=== PATIENT | female | born 1955 | race Caucasian/White ===

== ENCOUNTER → 2017-05-03 | Outpatient (CLI) | payer BC ==
[2017-05-03 11:59] LABS: ALT 28 U/L (9-52); AST 29 U/L (14-36); Alkaline Phosphatase 67 U/L (38-126); Anion Gap 8 mmol/L; Blood Urea Nitrogen 20 mg/dL (7-17); Calcium 9.3 mg/dL (8.4-10.2); Carbon Dioxide 26 mmol/L (22-30); Chloride 106 mmol/L (98-107); Cholesterol 196 mg/dL (<200); Glucose 91 mg/dL (74-99); HDL Cholesterol 66 mg/dL (40-60); Non-African American GFR(MDRD) >60 (>60 ml/min/1.73 sqM); Potassium 4.4 mmol/L (3.5-5.1); Sodium 140 mmol/L (137-145); Total Bilirubin 0.6 mg/dL (0.2-1.3); Total Protein 6.7 g/dL (6.3-8.2); Triglycerides 101 mg/dL (<150)
[2017-05-03 12:06] LABS: Basophils % (A) 1 %; CH 29.8; CHCM 32.9; Eosinophils # (A) 0.2 k/uL (0-0.7); Eosinophils % (A) 5 %; HCT 39.3 % (34.0-46.0); HDW 2.22; HGB 13.2 gm/dL (11.4-16.0); Luc # (Auto) 0.19; Luc % (Auto) 4; Lymphocytes # (A) 1.1 k/uL (1.0-4.8); Lymphocytes % (A) 23 %; MCH 30.5 pg (25.0-35.0); MCHC 33.6 g/dL (31.0-37.0); MCV 90.9 fL (80.0-100.0); Mean Platelet Volume 7.9; Monocytes # (A) 0.4 k/uL (0-1.0); Monocytes % (A) 8 %; Neutrophils # (A) 2.9 k/uL (1.3-7.7); Neutrophils % (A) 60 %; RBC 4.32 m/uL (3.80-5.40); RDW 12.5 % (11.5-15.5); WBC 4.8 k/uL (3.8-10.6); WBC (Perox) 5.21
[2017-05-03 12:14] LABS: Appearance,Urine Cloudy (Clear); Bacteria,Urine Rare /hpf; Bilirubin,Urine Negative (Negative); Glucose,Urine (UA) Negative (Negative); Ketones,Urine Negative (Negative); Leukocyte Esterase,Urine Large (Negative); Mucus,Urine Rare /hpf; Nitrite,Urine Negative (Negative); PH, Urine 5.5 (5.0-8.0); Particle Count 6404; Protein,Urine Negative (Negative); RBC,Urine 5 /hpf (0-5); Specific Gravity,Urine 1.018 (1.001-1.035); Squamous Epithelial Cell,Urine 3 /hpf (0-4); UA Billing (MACRO vs. MICRO) MICRO; Urobilinogen,Urine <2.0 mg/dL (<2.0); WBC,Urine 58 /hpf (0-5)
[2017-05-03 12:38] LABS: Hepatitis C Virus IgG Ab Negative (Negative); Hepatitis C Virus IgG Index 0.02
== END | disposition home or self-care (01) ==
LOC: LABWHC1 10:54
PROVIDERS: ATTEND Family Medicine
DX: Z00.00 Encounter for general adult medical examination without abnormal findings (principal); D64.9 Anemia, unspecified; E03.9 Hypothyroidism, unspecified; Z13.9 Encounter for screening, unspecified
CPT/HCPCS: 36415; 80053; 80061; 81001; 84439; 84443; 84481; 85025; 86803

== ENCOUNTER → 2018-06-30 | Outpatient (CLI) | payer BC ==
[2018-06-30 11:29] LABS: HCT 43.2 % (34.0-46.0); HGB 13.9 gm/dL (11.4-16.0); MCH 29.8 pg (25.0-35.0); MCHC 32.3 g/dL (31.0-37.0); MCV 92.4 fL (80.0-100.0); Mean Platelet Volume 7.1; Platelet Count 234 k/uL (150-450); RBC 4.68 m/uL (3.80-5.40); RDW 12.8 % (11.5-15.5); WBC 5.1 k/uL (3.8-10.6)
[2018-06-30 11:55] LABS: ALT 30 U/L (9-52); AST 28 U/L (14-36); Albumin 4.5 g/dL (3.5-5.0); Alkaline Phosphatase 68 U/L (38-126); Anion Gap 7 mmol/L; Blood Urea Nitrogen 35 mg/dL (7-17); Calcium 9.9 mg/dL (8.4-10.2); Carbon Dioxide 26 mmol/L (22-30); Chloride 106 mmol/L (98-107); Cholesterol 206 mg/dL (<200); Glucose 102 mg/dL (74-99); HDL Cholesterol 92 mg/dL (40-60); LDL Cholesterol,Calculated 100 mg/dL (0-99); Potassium 4.7 mmol/L (3.5-5.1); Sodium 139 mmol/L (137-145); Total Bilirubin 0.6 mg/dL (0.2-1.3); Total Protein 7.4 g/dL (6.3-8.2); Triglycerides 70 mg/dL (<150)
[2018-06-30 12:10] LABS: T4, Free (Free Thyroxine) 1.28 ng/dL (0.78-2.19)
[2018-06-30 12:18] LABS: Appearance,Urine Cloudy (Clear); Bacteria,Urine Occasional /hpf; Bilirubin,Urine Negative (Negative); Blood,Urine Negative (Negative); Color,Urine Yellow; Glucose,Urine (UA) Negative (Negative); Hyaline Casts,Urine 1 /lpf (0-2); Ketones,Urine Negative (Negative); Leukocyte Esterase,Urine Large (Negative); Mucus,Urine Rare /hpf; Nitrite,Urine Positive (Negative); PH, Urine 5.5 (5.0-8.0); Protein,Urine Negative (Negative); RBC,Urine 1 /hpf (0-5); Specific Gravity,Urine 1.018 (1.001-1.035); Squamous Epithelial Cell,Urine 2 /hpf (0-4); Urobilinogen,Urine <2.0 mg/dL (<2.0); WBC,Urine 30 /hpf (0-5)
== END | disposition home or self-care (01) ==
LOC: LABWHC1 11:03
PROVIDERS: ATTEND Family Medicine
DX: Z00.01 Encounter for general adult medical examination with abnormal findings (principal); R53.83 Other fatigue; E66.3 Overweight; E55.9 Vitamin D deficiency, unspecified; E03.9 Hypothyroidism, unspecified
CPT/HCPCS: 36415; 80053; 80061; 81001; 82306; 84439; 84443; 84481; 85027

== ENCOUNTER → 2019-07-25 | Outpatient (CLI) | payer BC ==
[2019-07-25 11:52] LABS: Appearance,Urine Cloudy (Clear); Bacteria,Urine Few /hpf; Bilirubin,Urine Negative (Negative); Blood,Urine Negative (Negative); Color,Urine Yellow; Glucose,Urine (UA) Negative (Negative); Ketones,Urine Negative (Negative); Leukocyte Esterase,Urine Large (Negative); Mucus,Urine Occasional /hpf; Nitrite,Urine Positive (Negative); Protein,Urine Negative (Negative); RBC,Urine 2 /hpf (0-5); Squamous Epithelial Cell,Urine 4 /hpf (0-4); Urobilinogen,Urine <2.0 mg/dL (<2.0); WBC,Urine 45 /hpf (0-5)
[2019-07-25 12:01] LABS: HCT 44.6 % (34.0-46.0); HGB 14.9 gm/dL (11.4-16.0); MCH 31.2 pg (25.0-35.0); MCHC 33.3 g/dL (31.0-37.0); MCV 93.6 fL (80.0-100.0); Mean Platelet Volume 6.1; Platelet Count 243 k/uL (150-450); RBC 4.77 m/uL (3.80-5.40); RDW 12.3 % (11.5-15.5); WBC 5.5 k/uL (3.8-10.6)
[2019-07-25 17:52] LABS: T4, Free (Free Thyroxine) 1.3 ng/dL (0.80-1.80)
[2019-07-25 18:02] LABS: African American GFR (CKD) 106.9 (60.0-200.0); Albumin 4.7 g/dL (3.80-4.90); Albumin/Globulin Ratio 2.35 (1.60-3.17); Anion Gap 13.2 mmol/L (4.00-12.00); BUN/Creat Ratio 25.71 Ratio (12.00-20.00); Calcium 9.8 mg/dL (8.7-10.3); Carbon Dioxide 26.8 mmol/L (21.6-31.8); Chol/HDL Ratio 2.09; LDL Cholesterol,Calculated 116.4 mg/dL (0.0-131.0); Potassium 4.6 mmol/L (3.5-5.5); Total Bilirubin 0.3 mg/dL (0.2-1.2); Total Protein 6.7 g/dL (6.2-8.2); VLDL Calculation 12.6 mg/dL (5.00-40.00)
== END | disposition home or self-care (01) ==
LOC: LABWHC1 10:38
PROVIDERS: ATTEND Family Medicine
DX: Z00.01 Encounter for general adult medical examination with abnormal findings (principal); E03.9 Hypothyroidism, unspecified; E55.9 Vitamin D deficiency, unspecified; R53.83 Other fatigue; E66.3 Overweight
CPT/HCPCS: 36415; 80053; 80061; 81001; 82306; 84439; 84443; 84481; 85027

== ENCOUNTER 2019-10-09 10:46 | Emergency (ER) | payer BC, OTHER ==
[2019-10-09 10:50] VITALS: BP 170/94; PULSE 97; RESP 18; TEMP 98.3
[2019-10-09] MEDS ORDERED: LIDOCAINE/EPINEPHR/TETRACAINE 5 ML BOTTLE TOPICAL ONE (10:55)
--- NOTE | 2019-10-09 11:11 | ED ---
Wound/Laceration HPI - General Chief Complaint: Wound/Laceration Stated Complaint: head lac-[facility] Time Seen by Provider: 10/09/19 10:53 Source: patient, RN notes reviewed Mode of arrival: ambulatory Limitations: no limitations - History of Present Illness Initial Comments: 64-year-old female presents emergency Department chief complaint of a head injury. Patient is at work states that she lifted a metal measuring device up but it did not stay states it fell striking him in the right cervical head. She states her tetanus is up-to-date. Patient denies any loss conscious. Patient states she does have mild headache, burning sensation at the site of the laceration. Patient denies any blurred vision, focal weakness denies nausea vomiting. - Related Data Home Medications Medication Instructions Recorded Confirmed Dextroamphetamine/Amphetamine 20 mg PO BID 08/05/16 08/10/16 [Adderall] Ergocalciferol [Vitamin D2 50,000 unit PO Q30D 08/05/16 08/10/16 (DRISDOL)] Levothyroxine Sodium [Synthroid] 88 mcg PO DAILY 08/05/16 08/10/16 Previous Rx's Medication Instructions Recorded Sennosides-Docusate Sodium 1 tab PO BID #60 tablet 08/12/16 [Senokot-S] Warfarin [Coumadin] 2.5 mg PO DAILY #1 tab 08/12/16 traMADol HCl [Ultram] 50 mg PO QID PRN #90 tab 08/12/16 Allergies Allergy/AdvReac Type Severity Reaction Status Date / Time codeine Allergy Vomiting Verified 08/05/16 09:23 Review of Systems ROS Statement: Those systems with pertinent positive or pertinent negative responses have been documented in the HPI. ROS Other: All systems not noted in ROS Statement are negative. Past Medical History Past Medical History: Thyroid Disorder Additional Past Medical History / Comment(s): Recent UTI completed ABX, varicose veins, hx ulcer, History of Any Multi-Drug Resistant Organisms: None Reported Past Surgical History: Cholecystectomy, Joint Replacement, Orthopedic Surgery Additional Past Surgical History / Comment(s): 08/10/16 Total R hip arthroplasty. Other surgical hx: surgery for stomach ulcer with cholecy stectomy, surgery on toes rt foot, Past Anesthesia/Blood Transfusion Reactions: No Reported Reaction Past Psychological History: ADD/ADHD Smoking Status: Former smoker Past Alcohol Use History: Occasional Past Drug Use History: None Reported - Past Family History Mother Family Medical History: No Reported History Additional Family Medical History / Comment(s): Mother was healthy and lived to be 83 yrs old. Father Family Medical History: Cancer Additional Family Medical History / Comment(s): Father at the age of 65 yrs due to lung cancer. General Exam Limitations: no limitations General appearance: alert, in no apparent distress Head exam: Present: atraumatic, normocephalic. Absent: normal inspection (2 cm laceration on right temporal region) Eye exam: Present: normal appearance, PERRL, EOMI. Absent: scleral icterus, conjunctival injection, periorbital swelling ENT exam: Present: normal exam, normal oropharynx, mucous membranes moist, TM's normal bilaterally Neck exam: Present: normal inspection, full ROM. Absent: tenderness, meningismus, lymphadenopathy Respiratory exam: Present: normal lung sounds bilaterally. Absent: respiratory distress, wheezes, rales, rhonchi, stridor Cardiovascular Exam: Present: regular rate, normal rhythm, normal heart sounds. Absent: systolic murmur, diastolic murmur, rubs, gallop, clicks Neurological exam: Present: alert, oriented X3, CN II-XII intact, reflexes normal. Absent: motor sensory deficit Skin exam: Present: warm, dry, intact, normal color. Absent: rash Course Vital Signs 10/09/19 10:48 Temperature 98.3 F Pulse Rate 97 Respiratory 18 Rate Blood Pressure 170/94 O2 Sat by Pulse 96 Oximetry Procedures - Laceration Laceration #1 Consent Obtained: verbal consent Indication: laceration Site: scalp Size (cm): 2 Description: linear Pre-repair: wound explored, irrigated extensively, deep structures intact Type of Sutures: other (dermal glue) Patient Tolerated Procedure: well, no complications Medical Decision Making - Medical Decision Making patient had scalp laceration, this was closed using exofin. CT is unremarkable. Patient's tetanus is up-to-date patient will be discharged in stable condition return parameters discussed. Disposition Clinical Impression: Laceration, Head injury Disposition: HOME SELF-CARE Condition: Stable Instructions (If sedation given, give patient instructions): Skin Adhesive Care (ED), Head Injury (ED) Additional Instructions: Please return to the Emergency Department if symptoms worsen or any other concerns. Is patient prescribed a controlled substance at d/c from ED?: No Referrals: Cornelio Wood MD [Primary Care Provider] - 1-2 days Time of Disposition: 11:51
--- NOTE | 2019-10-09 11:33 | CT ---
EXAMINATION TYPE: CT brain wo con DATE OF EXAM: 10/09/2019 COMPARISON: Head trauma, laceration and pain HISTORY: Head laceration-[facility] CT DLP: 1099.4 mGycm Automated exposure control for dose reduction was used. Head CT performed utilizing departmental prot ocol FINDINGS: Probable bandage is present over the right frontal scalp region. No intracranial hemorrhage or hydroc ephalus is noted. Cortical atrophy is mild. There are cerebral vascular calcifications present. Periv entricular white matter shows patchy low attenuation. Calvarium is intact. Paranasal sinuses are well aerated. Mastoid air cells are symmetric, oropharynx unremarkable as seen. Possible small lacunar in farct present in the basal ganglia on the left. IMPRESSION: NO ACUTE BRAIN ABNORMALITY. AGE-RELATED CHANGES OF ATROPHY AND PROBABLE CHRONIC SMALL VESSEL ISCHEMIA .
[2019-10-09] MEDS ORDERED: TOPICAL SKIN ADHESIVE 1 EACH AMP TOPICAL ONE (11:44)
== END 2019-10-09 12:06 | disposition home or self-care (01) ==
LOC: EC 10:46
DX: S01.01XA Laceration without foreign body of scalp, initial encounter (principal); E07.9 Disorder of thyroid, unspecified; F90.9 Attention-deficit hyperactivity disorder, unspecified type; Z87.891 Personal history of nicotine dependence; Z88.5 Allergy status to narcotic agent; Z79.890 Hormone replacement therapy; Z79.899 Other long term (current) drug therapy; Z87.440 Personal history of urinary (tract) infections; W20.8XXA Other cause of strike by thrown, projected or falling object, initial encounter; Y93.89 Activity, other specified; Y92.69 Other specified industrial and construction area as the place of occurrence of the external cause; Y99.0 Civilian activity done for income or pay
CPT/HCPCS: 12001; 70450; 99283

== ENCOUNTER → 2020-09-25 | Outpatient (CLI) | payer SELFPAY ==
[2020-09-25 09:14] LABS: HCT 43.6 % (34.0-46.0); HGB 14.1 gm/dL (11.4-16.0); MCH 30.9 pg (25.0-35.0); MCHC 32.4 g/dL (31.0-37.0); MCV 95.5 fL (80.0-100.0); Mean Platelet Volume 7.3; Platelet Count 274 k/uL (150-450); RBC 4.57 m/uL (3.80-5.40); RDW 12.4 % (11.5-15.5)
[2020-09-25 15:14] LABS: African American GFR (CKD) 90.3 (60.0-200.0); Albumin 4.6 g/dL (3.80-4.90); Albumin/Globulin Ratio 2.19 (1.60-3.17); Anion Gap 7.5 mmol/L (4.00-12.00); Calcium 9.9 mg/dL (8.7-10.3); Carbon Dioxide 30.5 mmol/L (21.6-31.8); Chol/HDL Ratio 2.81; Globulin 2.1 g/dL (1.6-3.3); LDL Cholesterol,Calculated 104.8 mg/dL (0.0-131.0); Non-African American GFR(CKD) 77.9 (60.0-200.0); Potassium 4.4 mmol/L (3.5-5.5); Total Bilirubin 0.2 mg/dL (0.2-1.2); Total Protein 6.7 g/dL (6.2-8.2); VLDL Calculation 54.2 mg/dL (5.00-40.00)
[2020-09-25 15:22] LABS: T4, Free (Free Thyroxine) 1.3 ng/dL (0.80-1.80)
== END | disposition home or self-care (01) ==
LOC: LABWHC1 08:25
PROVIDERS: ATTEND Family Medicine
DX: Z00.01 Encounter for general adult medical examination with abnormal findings (principal); E03.9 Hypothyroidism, unspecified; R53.83 Other fatigue; E66.3 Overweight
CPT/HCPCS: 36415; 80053; 80061; 84439; 84443; 84481; 85027

== ENCOUNTER → 2020-10-31 | Outpatient (CLI) | payer SELFPAY | END | disposition home or self-care (01) | LOC: LABWHC1 11:43 | PROVIDERS: ATTEND Family Medicine | DX: E03.9 Hypothyroidism, unspecified (principal) | CPT/HCPCS: 36415; 84443 ==

== ENCOUNTER → 2021-08-23 | Outpatient (CLI) | payer MEDICARE ==
[2021-08-23 18:43] LABS: HGB 13.9 g/dL (12.0-15.0); MCH 30.2 pg (27.0-32.0); MCHC 30.9 g/dL (32.0-37.0); MCV 97.8 fL (80.0-97.0); Mean Platelet Volume 11.3 fL (9.5-12.2); Platelet Count 240 X 10*3/uL (140-440); RDW 12.8 % (11.5-14.5)
[2021-08-23 20:11] LABS: African American GFR (CKD) 107.4 (60.0-200.0); Albumin 4.5 g/dL (3.8-4.9); Albumin/Globulin Ratio 1.71 (1.60-3.17); Anion Gap 18.4 mmol/L (4.00-12.00); BUN/Creat Ratio 21.03 Ratio (12.00-20.00); Blood Urea Nitrogen 13.9 mg/dL (9.0-27.0); Calcium 9.4 mg/dL (8.7-10.3); Carbon Dioxide 18.6 mmol/L (21.6-31.8); Chol/HDL Ratio 2.41 Ratio; Globulin 2.6 g/dL (1.6-3.3); HDL Cholesterol 84.7 mg/dL (40.00-60.00); LDL Cholesterol,Calculated 101.1 mg/dL (0.0-131.0); Non-African American GFR(CKD) 92.7 (60.0-200.0); Potassium 4.3 mmol/L (3.5-5.5); T4, Free (Free Thyroxine) 1.58 ng/dL (0.800-1.800); Total Bilirubin 0.3 mg/dL (0.30-1.20); Total Protein 7.1 g/dL (6.2-8.2); VLDL Calculation 18.2 mg/dL (5.00-40.00)
== END | disposition home or self-care (01) ==
LOC: LABWHC1 09:57
PROVIDERS: ATTEND Family Medicine
DX: Z00.01 Encounter for general adult medical examination with abnormal findings (principal); R53.83 Other fatigue; E03.9 Hypothyroidism, unspecified; E66.3 Overweight
CPT/HCPCS: 36415; 80053; 80061; 84439; 84443; 84481; 85027

== ENCOUNTER → 2022-09-03 | Outpatient (CLI) | payer MEDICARE, BC ==
[2022-09-03 18:17] LABS: HGB 14.2 g/dL (12.0-15.0); MCH 30.7 pg (27.0-32.0); MCHC 31.6 g/dL (32.0-37.0); MCV 97.4 fL (80.0-97.0); Mean Platelet Volume 10.7 fL (9.5-12.2); NRBC Per 100 WBC 0 /100 WBCS (0.0-0.0); Platelet Count 273 X 10*3/uL (140-440); RBC 4.62 X 10*6/uL (4.10-5.20); RDW 12.1 % (11.5-14.5); WBC 5.14 X 10*3/uL (4.50-10.00)
[2022-09-03 19:00] LABS: ALT 16 U/L (8-44); AST 22 U/L (13-35); African American GFR (CKD) 105.6 (60.0-200.0); Albumin 4.5 g/dL (3.8-4.9); Albumin/Globulin Ratio 1.83 (1.60-3.17); Alkaline Phosphatase 103 U/L (41-126); BUN/Creat Ratio 20.41 Ratio (12.00-20.00); Blood Urea Nitrogen 13.9 mg/dL (9.0-27.0); Calcium 9.9 mg/dL (8.7-10.3); Carbon Dioxide 26.6 mmol/L (20.0-27.5); Chloride 104 mmol/L (96-109); Chol/HDL Ratio 2.64 Ratio; Globulin 2.5 g/dL (1.6-3.3); Glucose 83 mg/dL (70-110); LDL Cholesterol,Calculated 104.6 mg/dL (0.0-131.0); Non-African American GFR(CKD) 91.1 (60.0-200.0); Potassium 4.6 mmol/L (3.5-5.5); Sodium 143 mmol/L (135-145)
== END | disposition home or self-care (01) ==
LOC: LABWHC1 10:51
PROVIDERS: ATTEND Family Medicine
DX: Z00.01 Encounter for general adult medical examination with abnormal findings (principal); E03.9 Hypothyroidism, unspecified; E55.9 Vitamin D deficiency, unspecified
CPT/HCPCS: 36415; 80053; 80061; 82306; 84439; 84443; 84481; 85027

== ENCOUNTER → 2023-04-07 | Outpatient (CLI) | payer MEDICARE, OTHER ==
--- NOTE | 2023-04-07 18:25 | BD ---
EXAMINATION TYPE: Axial Bone Density DATE OF EXAM: 04/07/2023 CLINICAL HISTORY: 67 years old Female. ICD-10 CODE: M89.9 DISORDER OF BONE Height: 60.5 in Weight: 106 lbs FRAX RISK QUESTIONS: Family History (Parent hip fracture): yes mother Secondary Osteoporosis: 3. Menopause before 45: age 47 RISK FACTORS HISTORY OF: Surgery to Hip(right): rt hip replacement age 60 Active: yes Postmenopausal woman: age 47 Lost more than 2 inches in height since high school: yes 3.5" MEDICATIONS: Prednisone or other steroids: How Long: Thyroid Medications: yes Which medication: Levothyroxine How Lon+ years Additional Medications: add meds, vit d, multi vit, EXAM MEASUREMENTS: Bone mineral densitometry was performed using the [employer] System. Bone mineral density as measured about the Lumbar spine is: ----- L1-L4(G/cm2): 1.072 T Score Values are as follows: ----- L1: -1.8 ----- L2: -0.9 ----- L3: -0.3 ----- L4: -0.9 ----- L1-L4: -0.9 Z Score Values are as follows: ----- L1: 0.4 ----- L2: 1.3 ----- L3: 1.8 ----- L4: 1.3 ----- L1-L4: 1.3 Bone mineral density baseline rt hip replacement age 60 Bone mineral density about the L hip (g/cm2): 0.703 T Score values are as follows: -----L Neck: -2.3 -----L Total: -2.4 Z Score values are as follows: -----L Neck: -0.4 -----L Total: -0.7 Bone mineral density baseline FRAX%s: The graph provided illustrates a % chance for a major osteoporotic fx and a % chance for the hips probability for fx in 10 years time. IMPRESSION: Osteopenia (T Score between -2.5 and -1). There is slightly increased risk of fracture and the patient may be considered for treatment. Re-Screen 2-5 years. NOTE: T-SCORE=SD OF THE YOUNG ADULT MEAN.
== END | disposition home or self-care (01) ==
LOC: RADBDWWP 11:01
PROVIDERS: ATTEND Family Medicine
DX: M85.89 Other specified disorders of bone density and structure, multiple sites (principal)
CPT/HCPCS: 77080

== ENCOUNTER → 2023-09-06 | Outpatient (CLI) | payer OTHER ==
[2023-09-06 18:46] LABS: ALT 17 U/L (8-44); AST 23 U/L (13-35); Albumin 4.5 g/dL (3.8-4.9); Albumin/Globulin Ratio 1.88 Ratio (1.60-3.17); Alkaline Phosphatase 100 U/L (41-126); BUN/Creat Ratio 18.38 Ratio (12.00-20.00); Blood Urea Nitrogen 14.7 mg/dL (9.0-27.0); Calcium 9.8 mg/dL (8.7-10.3); Carbon Dioxide 24.1 mmol/L (21.6-31.8); Chloride 104 mmol/L (96-109); Chol/HDL Ratio 3.09 Ratio; Globulin 2.4 g/dL (1.6-3.3); Glucose 90 mg/dL (70-110); LDL Cholesterol,Calculated 131.8 mg/dL (0.0-131.0); Potassium 4.8 mmol/L (3.5-5.5); Sodium 141 mmol/L (135-145); T4, Free (Free Thyroxine) 1.29 ng/dL (0.80-1.80); Total Bilirubin 0.4 mg/dL (0.3-1.2); Total Protein 6.9 g/dL (6.2-8.2)
[2023-09-06 18:47] LABS: HGB 14.3 g/dL (12.0-15.0); MCH 30.2 pg (27.0-32.0); MCHC 31.8 g/dL (32.0-37.0); MCV 94.9 FL (80.0-97.0); Mean Platelet Volume 11.2 FL (9.5-12.2); NRBC Per 100 WBC 0 X 10*3/uL (0.00-0.01); Platelet Count 273 X 10*3/uL (140-440); RBC 4.74 X 10*6/uL (4.10-5.20); RDW 12.6 % (11.5-14.5)
== END | disposition home or self-care (01) ==
LOC: LABWHC1 09:31
PROVIDERS: ATTEND Family Medicine
DX: Z00.01 Encounter for general adult medical examination with abnormal findings (principal); E03.9 Hypothyroidism, unspecified
CPT/HCPCS: 36415; 80053; 80061; 84439; 84443; 84481; 85027

== ENCOUNTER → 2024-04-10 | Outpatient (CLI) | payer MEDICARE ==
--- NOTE | 2024-04-10 18:12 | XR ---
EXAMINATION TYPE: XR ribs RT w pa chest xray DATE OF EXAM: 04/10/2024 5:39 PM CLINICAL INDICATION:Female, 68 years old with history of R07.81 PLEURODYNIA; [facility] COMPARISON: None TECHNIQUE: XR ribs RT w pa chest xray; Frontal and oblique views of the ribs with frontal chest radio graph. FINDINGS/IMPRESSION: At least one right lower lateral rib fracture identified with mild displacement. Remainder of the tho rax appears unremarkable.
== END | disposition home or self-care (01) ==
LOC: RADXRMAIN 17:19
PROVIDERS: ATTEND Physician Assistant
DX: S22.31XA Fracture of one rib, right side, initial encounter for closed fracture (principal)

== ENCOUNTER → 2024-09-14 | Outpatient (CLI) | payer MEDICARE ==
[2024-09-14 16:16] LABS: ALT 22 U/L (8-44); AST 24 U/L (13-35); Albumin 4.6 g/dL (3.8-4.9); Alkaline Phosphatase 91 U/L (41-126); Blood Urea Nitrogen 15.3 mg/dL (9.0-27.0); Calcium 9.8 mg/dL (8.7-10.3); Carbon Dioxide 23.9 mmol/L (21.6-31.8); Chloride 105 mmol/L (96-109); Chol/HDL Ratio 2.39 Ratio; Globulin 2.3 g/dL (1.6-3.3); Glucose 126 mg/dL (70-110); HCT 39.9 % (37.2-46.3); HGB 12.9 g/dL (12.0-15.0); LDL Cholesterol,Calculated 120.5 mg/dL (0.0-131.0); MCH 31.5 pg (27.0-32.0); MCHC 32.3 g/dL (32.0-37.0); MCV 97.6 FL (80.0-97.0); NRBC Per 100 WBC 0 X 10*3/uL (0.00-0.01); Platelet Count 272 X 10*3/uL (140-440); Potassium 4.8 mmol/L (3.5-5.5); RBC 4.09 X 10*6/uL (4.10-5.20); RDW 12.8 % (11.5-14.5); Sodium 140 mmol/L (135-145); Total Bilirubin 0.3 mg/dL (0.3-1.2); Total Protein 6.9 g/dL (6.2-8.2); VLDL Calculation 12.82 mg/dL (5.00-40.00); WBC 6.65 X 10*3/uL (4.50-10.00)
[2024-09-14 16:17] LABS: T4, Free (Free Thyroxine) 1.46 ng/dL (0.80-1.80)
== END | disposition home or self-care (01) ==
LOC: LABWHC1 09:06
PROVIDERS: ATTEND Family Medicine
DX: E03.9 Hypothyroidism, unspecified (principal); Z00.01 Encounter for general adult medical examination with abnormal findings; E55.9 Vitamin D deficiency, unspecified; E66.3 Overweight; R53.83 Other fatigue
CPT/HCPCS: 36415; 80053; 80061; 82306; 84439; 84443; 84481; 85027